=== PATIENT | male | born 1960 | race Two or more races ===

== ENCOUNTER 2017-06-03 07:38 | Day surgery (SDC) | payer OTHER ==
[2017-05-27 10:37] LABS: HEMATOCRIT 45.8 % (37.9-51.0); HEMOGLOBIN 15.5 g/dL (13.5-17.0); MEAN CORPUSCULAR HEMOGLOBIN 29.4 pg (27.0-33.4); MEAN CORPUSCULAR HGB CONC 33.8 g/dL (32.0-36.0); MEAN CORPUSCULAR VOLUME 87 fl (80-97); PLATELET COUNT 258 10^3/uL (150-450); RED BLOOD COUNT 5.26 10^6/uL (4.35-5.55); RED CELL DISTRIBUTION WIDTH 13.9 % (11.5-14.0); WHITE BLOOD COUNT 7.4 10^3/uL (4.0-10.5)
[2017-05-27 10:37] LABS: APPEARANCE,URINE SLIGHTLY-CLOUDY; BILIRUBIN,URINE NEGATIVE (NEGATIVE); COLOR,URINE YELLOW; GLUCOSE, URINE NEGATIVE (NEGATIVE); KETONES,URINE NEGATIVE (NEGATIVE); LEUKOCYTE ESTERASE,URINE NEGATIVE (NEGATIVE); NITRITE,URINE NEGATIVE (NEGATIVE); PROTEIN,URINE NEGATIVE (NEGATIVE); UROBILINOGEN,URINE NEGATIVE mg/dL (<2.0)
[2017-05-27 10:41] LABS: INTERNATIONAL RATION (INR) 0.91; PROTHROMBIN TIME 12.9 SEC (11.4-15.4)
[2017-05-27 10:42] LABS: PARTIAL THROMBOPLASTIN TIME 33.9 SEC (23.5-35.8)
--- NOTE | 2017-05-27 11:38 | RADIOLOGY REPORT (SQ) ---
EXAM DESCRIPTION: CHEST PA/LATERAL COMPLETED DATE/TIME: 05/27/2017 11:25 am REASON FOR STUDY: PRE OP COMPARISON: 01/27/2013 PA chest EXAM PARAMETERS: NUMBER OF VIEWS: two views TECHNIQUE: Digital Frontal and Lateral radiographic views of the chest acquired. RADIATION DOSE: NA LIMITATIONS: none FINDINGS: LUNGS AND PLEURA: No opacities, masses or pneumothorax. No pleural effusion. MEDIASTINUM AND HILAR STRUCTURES: No masses or contour abnormalities. HEART AND VASCULAR STRUCTURES: Heart normal size. No evidence for failure. BONES: No acute findings. HARDWARE: Thoracic spine neurostimulator leads are present, new compared to 2012 OTHER: No other significant finding. IMPRESSION: NO SIGNIFICANT RADIOGRAPHIC FINDING IN THE CHEST. TECHNICAL DOCUMENTATION: JOB ID: [id number] [employer]- All Rights Reserved Reading location - IP/workstation name: [email or web address]
--- NOTE | 2017-05-27 12:32 | EKG REPORT ---
SEVERITY:- BORDERLINE ECG - SINUS RHYTHM BORDERLINE T ABNORMALITIES, ANTERIOR LEADS, SIGHTLY IMPROVED V4-V6 FROM 01/27/13 EKG. : Confirmed by: Cornel Harmon MD 27-May-2017 12:32:06
[~2017-06-03 07:38] MED LIST: LACTATED RINGERS 1000 ML IV PRN
[2017-06-03] MEDS ORDERED: SODIUM BICARBONATE 8.4% INJ 50 MEQ/50 ML DISP.SYRIN ONE ×2 (07:51→10:00)
[2017-06-03] MEDS ORDERED: LIDOCAINE 1% INJ-PF (10 MG/ML) 30 ML SDV ONE (07:56)
[2017-06-03] MEDS ORDERED: BUPIVACAINE HCL 0.5%-EPI 1:200000 INJ/PF 30 ML VIAL ONE (07:56)
[2017-06-03] MEDS ORDERED: CLINDAMYCIN 600 MG/D5W RTU 600 MG/50 ML RTUPB IV PRN (08:20)
[2017-06-03] MEDS ORDERED: CLINDAMYCIN 600 MG/D5W RTU 600 MG/50 ML RTUPB IV ONE (08:25)
[2017-06-03] MEDS ORDERED: MIDAZOLAM 2 MG/2 ML INJ ONE (10:01)
[2017-06-03] MEDS ORDERED: LIDOCAINE 2% INJ-PF (20 MG/ML) 10 ML AMPUL ONE (10:01)
[2017-06-03] MEDS ORDERED: PROPOFOL INJ 200 MG/20 ML VIAL IV ONE (10:01)
[2017-06-03] MEDS ORDERED: DIPHENHYDRAMINE HCL 50 MG/ML VIAL IV PRN (10:20)
[2017-06-03] MEDS ORDERED: FENTANYL CITRATE INJ/PF 100 MCG/2 ML AMPUL IV PRN ×3 (10:20)
[2017-06-03] MEDS ORDERED: ONDANSETRON HCL INJ/PF 4 MG/2 ML SDV IV PRN (10:20)
[2017-06-03] MEDS ORDERED: OXYCODONE-ACETAMINOPHEN 5-325 MG TABLET PO PRN ×2 (10:20→11:43)
[2017-06-03] MEDS ORDERED: MEPERIDINE HCL/PF INJ 25 MG/1 ML DISP.SYRIN IV PRN (10:20)
[2017-06-03] MEDS ORDERED: PROMETHAZINE HCL INJ 25 MG/1 ML VIAL IV PRN ×2 (10:20)
[2017-06-03] MEDS ORDERED: CLINDAMYCIN PHOSPHATE INJ 300 MG/2 ML SDV ONE (11:15)
--- NOTE | 2017-06-03 11:40 | RADIOLOGY REPORT (SQ) ---
EXAM DESCRIPTION: SPINE SINGLE VIEW; NO CHG FLUORO COMPLETED DATE/TIME: 06/03/2017 11:14 am REASON FOR STUDY: BATTERY EXCHANGE ASST WITH FLUORO IN OR G89.4 CHRONIC PAIN SYNDROME COMPARISON: None. FLUOROSCOPY TIME: 02/02/2013 2 digital radiographic images saved to PACS. TECHNIQUE: Intra-operative images acquired during surgical procedure to evaluate progress. NUMBER OF IMAGES: 2 digital radiographic images LIMITATIONS: None. FINDINGS: Intra procedural imaging and fluoro during battery change on spinal cord stimulator perfor med by Dr. Weaver. Please see the operative report for further details IMPRESSION: Intra procedural imaging and fluoro COMMENT: Quality ID 145: Final reports for procedures using fluoroscopy that document radiation exp osure indices, or exposure time and number of fluorographic images (if radiation exposure indices are not available) Please consult full operative report of the attending physician for description of the procedure. TECHNICAL DOCUMENTATION: JOB ID: [id number] [employer]- All Rights Reserved Reading location - IP/workstation name: [email or web address]
--- NOTE | 2017-06-03 11:40 | RADIOLOGY REPORT (SQ) ---
EXAM DESCRIPTION: SPINE SINGLE VIEW; NO CHG FLUORO COMPLETED DATE/TIME: 06/03/2017 11:14 am REASON FOR STUDY: BATTERY EXCHANGE ASST WITH FLUORO IN OR G89.4 CHRONIC PAIN SYNDROME COMPARISON: None. FLUOROSCOPY TIME: 02/02/2013 2 digital radiographic images saved to PACS. TECHNIQUE: Intra-operative images acquired during surgical procedure to evaluate progress. NUMBER OF IMAGES: 2 digital radiographic images LIMITATIONS: None. FINDINGS: Intra procedural imaging and fluoro during battery change on spinal cord stimulator perfor med by Dr. Weaver. Please see the operative report for further details IMPRESSION: Intra procedural imaging and fluoro COMMENT: Quality ID 145: Final reports for procedures using fluoroscopy that document radiation exp osure indices, or exposure time and number of fluorographic images (if radiation exposure indices are not available) Please consult full operative report of the attending physician for description of the procedure. TECHNICAL DOCUMENTATION: JOB ID: [id number] [employer]- All Rights Reserved Reading location - IP/workstation name: [email or web address]
--- NOTE | 2017-06-03 12:59 | OPERATIVE REPORT E ---
Operative Report NAME: TARAN YO : 1960 AGE: 52Y DATE OF SURGERY: 06/03/2017 ROOM: PREOPERATIVE DIAGNOSIS: Nonfunctioning spinal cord stimulator post generator. POSTOPERATIVE DIAGNOSIS: Nonfunctioning spinal cord stimulator post generator. OPERATION: Remove and replace pulse generator with fluoroscopic assistance. SURGEON: TUCKER ZUNIGA M.D. FINDINGS: Nonfunctioning generator. COMPLICATIONS: None. SURGICAL ASSISTANTS: None. ANESTHESIA: MAC. ESTIMATED BLOOD LOSS: 20 mL. SPECIMENS REMOVED: Battery. PROCEDURE NOTE: After obtaining informed consent and advising the patient of the risks and benefits including the aggravation of pain, inability to complete the revision and have satisfactory pain relief, allergic reaction to medications, neurologic injury, paralysis, and , he was taken to the operating room, placed comfortably in the prone position. Comfort was assessed visually and verbally. Monitors were applied per Anesthesia, and MAC anesthesia was administered. He was prepped with chlorhexidine x2 over the entire back region with specific *------* midline and the pulse generator as noted on the left. Fluoroscopy was used to evaluate the electrodes. They appeared to be in satisfactory location without interruption or breakage. Pulse generator was identified with coil of electrodes behind the generator. The scar for the original battery implant was identified and local anesthesia was administered using 1% lidocaine with bicarbonate, followed by 0.25% bupivacaine with epinephrine, and once suitable anesthesia was obtained, sharp and blunt dissection were performed down to the pulse generator. This was delivered easily. The leads were disconnected and connected to a trial electrode wires and found that all impendences were satisfactory indicating that the leads were in functioning order. The new battery was connected and all hex nuts were secured. It was placed in the pocket after copious irrigation with Betadine containing irrigation solution. Impendence and connectivity was assessed and was satisfactory. Further irrigation was performed followed by closure with a vertical inverted mattress suture using 3-0 Polysorb followed by Dermabond tape and cement. When this was dry, Telfa and Tegaderm was placed. He was then taken to PACU for further postoperative care and monitoring. DICTATING PHYSICIAN: TUCKER ZUNIGA M.D. [id number] PHY#: [id number] ID: [id number] JOB#: [id number] ACCT: [id number] cc:TUCKER ZUNIGA M.D. > ALEXANDRA
[2017-06-03 13:12] VITALS: BP 130/78
== END 2017-06-03 13:00 | disposition home or self-care (01) ==
LOC: OROUT 07:38
PROVIDERS: ATTEND Pain Medicine Interventional Pain Medicine
PROC: 0JWT0MZ Revision of Stimulator Generator in Trunk Subcutaneous Tissue and Fascia, Open Approach (ICD-10-PCS; principal; 2017-06-03 09:30)
DX: T85.113A Breakdown (mechanical) of implanted electronic neurostimulator, generator, initial encounter (principal); Y83.1 Surgical operation with implant of artificial internal device as the cause of abnormal reaction of the patient, or of later complication, without mention of misadventure at the time of the procedure; G89.4 Chronic pain syndrome; M19.90 Unspecified osteoarthritis, unspecified site; I12.9 Hypertensive chronic kidney disease with stage 1 through stage 4 chronic kidney disease, or unspecified chronic kidney disease; N18.2 Chronic kidney disease, stage 2 (mild); M54.5 Low back pain; M54.16 Radiculopathy, lumbar region; M51.36 Other intervertebral disc degeneration, lumbar region; M96.1 Postlaminectomy syndrome, not elsewhere classified; E66.9 Obesity, unspecified; F45.42 Pain disorder with related psychological factors; Z79.899 Other long term (current) drug therapy; Z79.82 Long term (current) use of aspirin; Z68.43 Body mass index [BMI] 50.0-59.9, adult
CPT/HCPCS: 93005; 36415 ×2; 84132; 85027; 85610; 85730; 81001; 71046; 72020; 93010; 63688; C1820; J2250; J3490 ×5; J2704; 300

== ENCOUNTER 2018-02-17 09:21 | Day surgery (SDC) | payer OTHER ==
[2018-02-13 10:30] LABS: HEMOGLOBIN 15.3 g/dL (13.5-17.0); MEAN CORPUSCULAR HEMOGLOBIN 30.6 pg (27.0-33.4); MEAN CORPUSCULAR HGB CONC 34.7 g/dL (32.0-36.0); MEAN CORPUSCULAR VOLUME 88 fl (80-97); PLATELET COUNT 263 10^3/uL (150-450); RED BLOOD COUNT 4.98 10^6/uL (4.35-5.55); RED CELL DISTRIBUTION WIDTH 13.8 % (11.5-14.0); WHITE BLOOD COUNT 8.6 10^3/uL (4.0-10.5)
[2018-02-13 10:32] LABS: APPEARANCE,URINE SLIGHTLY-CLOUDY; BILIRUBIN,URINE NEGATIVE (NEGATIVE); GLUCOSE, URINE NEGATIVE (NEGATIVE); KETONES,URINE NEGATIVE (NEGATIVE); LEUKOCYTE ESTERASE,URINE SMALL (NEGATIVE); NITRITE,URINE NEGATIVE (NEGATIVE); PROTEIN,URINE NEGATIVE (NEGATIVE); URINE SPECIFIC GRAVITY 1.024; UROBILINOGEN,URINE NEGATIVE mg/dL (<2.0)
[2018-02-13 10:33] LABS: COLOR,URINE YELLOW
[2018-02-13 10:36] LABS: INTERNATIONAL RATION (INR) 0.92; PROTHROMBIN TIME 12.8 SEC (11.4-15.4)
[2018-02-13 10:37] LABS: PARTIAL THROMBOPLASTIN TIME 37.2 SEC (23.5-35.8)
--- NOTE | 2018-02-13 10:53 | RADIOLOGY REPORT (SQ) ---
EXAM DESCRIPTION: CHEST PA/LATERAL COMPLETED DATE/TIME: 02/13/2018 10:34 am REASON FOR STUDY: PRE-OP COMPARISON: 01/27/2013 EXAM PARAMETERS: NUMBER OF VIEWS: two views TECHNIQUE: Digital Frontal and Lateral radiographic views of the chest acquired. RADIATION DOSE: NA LIMITATIONS: none FINDINGS: LUNGS AND PLEURA: No opacities, masses or pneumothorax. No pleural effusion. MEDIASTINUM AND HILAR STRUCTURES: No masses or contour abnormalities. HEART AND VASCULAR STRUCTURES: Heart normal size. No evidence for failure. BONES: No acute findings. HARDWARE: None in the chest. OTHER: Neurostimulator overlies the mid dorsal spine. IMPRESSION: NO SIGNIFICANT RADIOGRAPHIC FINDING IN THE CHEST. TECHNICAL DOCUMENTATION: JOB ID: [id number] [employer]- All Rights Reserved Reading location - IP/workstation name: [email or web address]
--- NOTE | 2018-02-13 13:17 | EKG REPORT ---
SEVERITY:- ABNORMAL ECG - SINUS RHYTHM BORDERLINE T ABNORMALITIES, INFERIOR AND ANTERIOR LEADS : Confirmed by: Cornel Harmon MD 13-Feb-2018 13:16:44
[~2018-02-17 09:21] MED LIST changes: +CEFAZOLIN 1 GM/D5W RTU 1 GM/50 ML RTUPB IV PRN; +CLINDAMYCIN 600 MG/D5W RTU 600 MG/50 ML RTUPB IV ONE; +CLINDAMYCIN 600 MG/D5W RTU 600 MG/50 ML RTUPB IV PRN; +LIDOCAINE 0.5% INJ-PF (5 MG/ML) 50 ML SDV SUBCUT PRN
[2018-02-17] MEDS ORDERED: BUPIVACAINE HCL 0.25% /EPINEPHRINE INJ/PF 30 ML SDV ONE (10:03)
[2018-02-17] MEDS ORDERED: SODIUM BICARBONATE 8.4% INJ 50 MEQ/50 ML DISP.SYRIN ONE (10:03)
[2018-02-17] MEDS ORDERED: LIDOCAINE 1% INJ-PF (10 MG/ML) 30 ML SDV ONE (10:03)
[2018-02-17] MEDS ORDERED: MIDAZOLAM 2 MG/2 ML INJ ONE (12:04)
[2018-02-17] MEDS ORDERED: FENTANYL CITRATE INJ/PF 100 MCG/2 ML AMPUL ONE (12:04)
[2018-02-17] MEDS ORDERED: ONDANSETRON HCL INJ/PF 4 MG/2 ML SDV ONE (12:05)
[2018-02-17] MEDS ORDERED: PROPOFOL INJ 200 MG/20 ML VIAL IV ONE (12:05)
[2018-02-17] MEDS ORDERED: DIPHENHYDRAMINE HCL 50 MG/ML VIAL IV PRN (12:45)
[2018-02-17] MEDS ORDERED: PROMETHAZINE HCL INJ 25 MG/1 ML VIAL IV PRN (12:45)
[2018-02-17] MEDS ORDERED: FENTANYL CITRATE INJ/PF 100 MCG/2 ML AMPUL IV PRN ×3 (12:45)
[2018-02-17] MEDS ORDERED: MEPERIDINE HCL/PF INJ 25 MG/1 ML DISP.SYRIN IV PRN (12:45)
[2018-02-17] MEDS ORDERED: MORPHINE SULFATE 10 MG/ML INJ IV PRN (12:45)
[2018-02-17] MEDS: FENTANYL CITRATE INJ/PF 100 MCG/2 ML AMPUL ONE ×2 (13:34→13:44)
[2018-02-17] MEDS ORDERED: OXYCODONE-ACETAMINOPHEN 5-325 MG TABLET PO PRN (13:35)
--- NOTE | 2018-02-17 13:40 | RADIOLOGY REPORT (SQ) ---
EXAM DESCRIPTION: NO CHG FLUORO; L SPINE 2 VIEWS COMPLETED DATE/TIME: 02/17/2018 1:28 pm REASON FOR STUDY: SPINAL STIMULATOR REVISION ASST WITH FLUORO IN OR COMPARISON: None. FLUOROSCOPY TIME: 0.3 minutes 4 Images saved to PACS LIMITATIONS: None. PROCEDURE: Spinal stimulator revision FINDINGS: 4 images document the procedure. IMPRESSION: Spinal stimulator revision. Refer to operative note for further information. COMMENT: PQRS 6045F: Fluoroscopy time of the procedure is documented in the report. TECHNICAL DOCUMENTATION: JOB ID: [id number] [employer]- All Rights Reserved Reading location - IP/workstation name: [email or web address]
--- NOTE | 2018-02-17 13:40 | RADIOLOGY REPORT (SQ) ---
EXAM DESCRIPTION: NO CHG FLUORO; L SPINE 2 VIEWS COMPLETED DATE/TIME: 02/17/2018 1:28 pm REASON FOR STUDY: SPINAL STIMULATOR REVISION ASST WITH FLUORO IN OR COMPARISON: None. FLUOROSCOPY TIME: 0.3 minutes 4 Images saved to PACS LIMITATIONS: None. PROCEDURE: Spinal stimulator revision FINDINGS: 4 images document the procedure. IMPRESSION: Spinal stimulator revision. Refer to operative note for further information. COMMENT: PQRS 6045F: Fluoroscopy time of the procedure is documented in the report. TECHNICAL DOCUMENTATION: JOB ID: [id number] [employer]- All Rights Reserved Reading location - IP/workstation name: [email or web address]
[2018-02-17] MEDS ORDERED: OXYCODONE-ACETAMINOPHEN 5-325 MG TABLET ONE (14:21)
--- NOTE | 2018-02-17 14:22 | OPERATIVE REPORT E ---
Operative Report NAME: TARAN YO : 1960 AGE: 57Y DATE OF SURGERY: 02/17/2018 ROOM: PREOPERATIVE DIAGNOSIS: NONFUNCTIONING SPINAL CORD STIMULATOR SECONDARY TO PULSE GENERATOR POCKET PAIN. POSTOPERATIVE DIAGNOSIS: NONFUNCTIONING SPINAL CORD STIMULATOR SECONDARY TO PULSE GENERATOR POCKET PAIN. OPERATION: Revision of pulse generator pocket with fluoroscopic assistance. SURGEON: TUCKER ZUNIGA M.D. CLINICAL SOCIAL WORK THERAPIST: JONG BRYAN MD ANESTHESIA: MAC SPECIMENS REMOVED: None. ESTIMATED BLOOD LOSS: Minimal, 5 mL or less. COMPLICATIONS: None. INDICATION: Pump pocket pain. ROCEDURE: After obtaining informed consent advising the patient of the risks and benefits including serious neurological injury, bleeding, infection, failure to resolve pocket pain, and nonfunctioning stimulator with revision of wires, he was taken to the operating room and placed comfortably in the prone position. MAC anesthesia was administered. He was prepped and draped in the usual fashion with Chlorhexidine and a suitable 3 minute waiting period for proper drying. After draping, he was evaluated under fluoroscopy and the pulse generator was seen with the wires coiled neatly behind the generator and no evidence of stem wires on the top or to the side of the pulse generator. The skin was anesthetized with 1% lidocaine with bicarb and the pocket was anesthetized as well with 0.25% bupivacaine with epinephrine. Sharp and blunt dissection were performed down to the pulse generator. Bovie was not used at this time. The generator was removed easily from the pocket and disconnected from the leads. The leads were uncoiled from the scar tissue. The capsule at the superior edge of the pocket was then infiltrated with 0.25% bupivacaine and Bovie dissection and blunt and sharp dissection were proceeded to create a space for the pulse generator, superior to the existing pocket. The pulse generator was connected back to the leads. They had been marked so the appropriate placement remained intact. The hex nuts were tightened after testing for impendence which was satisfactory. The generator was then placed in the pocket with the wires behind the generator and the label facing the skin. The pocket was then closed, securing the pulse generator in its more superior location. It should be noted that the wounds were copiously irrigated with Betadine-containing irrigation solution. The capsule was then approximated to its preexisting edge with 2-0 Vicryl. A second layer was then utilized. The skin was then stapled without difficulty after additional irrigation. The region appeared good. Sterile dressings were placed and the patient was taken to the PACU for further postoperative care and monitoring. DICTATING PHYSICIAN: TUCKER ZUNIGA M.D. [id number] PHY#: [id number] ID: [id number] JOB#: [id number] ACCT: [id number] cc:TUCKER ZUNIGA M.D. >
[2018-02-17 15:32] VITALS: BP 128/79
== END 2018-02-17 15:15 | disposition home or self-care (01) ==
LOC: OROUT 09:21
PROVIDERS: ATTEND Pain Medicine Interventional Pain Medicine
DX: G89.4 Chronic pain syndrome (principal); Z79.899 Other long term (current) drug therapy; Z79.82 Long term (current) use of aspirin; Z79.1 Long term (current) use of non-steroidal anti-inflammatories (NSAID); I10 Essential (primary) hypertension; K21.9 Gastro-esophageal reflux disease without esophagitis; M19.90 Unspecified osteoarthritis, unspecified site; M54.5 Low back pain; M54.16 Radiculopathy, lumbar region; M96.1 Postlaminectomy syndrome, not elsewhere classified; F45.42 Pain disorder with related psychological factors; M60.9 Myositis, unspecified; Z79.891 Long term (current) use of opiate analgesic; G47.33 Obstructive sleep apnea (adult) (pediatric)
CPT/HCPCS: 93005; 36415 ×2; 84132; 85027; 85610; 85730; 81001; 71046; 72100; 93010; 63688; J2250; J3490 ×3; J3010; J2405; J2704; 1936

== ENCOUNTER → 2019-02-26 | Outpatient (CLI) | payer OTHER ==
--- NOTE | 2019-02-26 12:43 | RADIOLOGY REPORT (SQ) ---
EXAM DESCRIPTION: LUMBAR SPINE COMPLETE COMPLETED DATE/TIME: 02/26/2019 12:06 pm REASON FOR STUDY: RADICULOPATHY, LUMBAR REGION M54.16 RADICULOPATHY, LUMBAR REGION COMPARISON: None. NUMBER OF VIEWS: Five views including obliques. TECHNIQUE: AP, lateral, oblique, and sacral radiographic images acquired of the lumbar spine. LIMITATIONS: None. FINDINGS: MINERALIZATION: Normal. SEGMENTATION: Normal. No transitional anatomy. ALIGNMENT: Normal. VERTEBRAE: Maintained height. No fracture or worrisome bone lesion. DISCS: Mild multilevel disc space narrowing most marked at L3-L4. Small anterior osteophytes through out the lumbar spine. POSTERIOR ELEMENTS: Pedicles and facets are intact. No pars defect or posterior arch defects. HARDWARE: None in the spine. There has been posterior decompression from L3 through L5. PARASPINAL SOFT TISSUES: Normal. PELVIS: Intact as visualized. No fractures or worrisome bone lesions. SI joints intact. OTHER: No other significant finding. IMPRESSION: Postsurgical and mild degenerative changes. No acute findings. TECHNICAL DOCUMENTATION: JOB ID: [id number]- All Rights Reserved Reading location - IP/workstation name: [email or web address]
== END ==
LOC: OD 11:48
PROVIDERS: ATTEND Student in an Organized Health Care Education/Training Program
DX: M51.16 Intervertebral disc disorders with radiculopathy, lumbar region (principal)
CPT/HCPCS: 72110

== ENCOUNTER → 2019-12-24 | Outpatient (CLI) | payer OTHER ==
--- NOTE | 2019-12-24 12:10 | RADIOLOGY REPORT (SQ) ---
EXAM DESCRIPTION: MRI LUMBAR SPINE WITHOUT IMAGES COMPLETED DATE/TIME: 12/24/2019 10:56 am REASON FOR STUDY: M54.16 RADICULOPATHY, LUMBAR REGION M54.16 RADICULOPATHY, LUMBAR REGION COMPARISON: Lumbar spine radiographs 02/26/2019 TECHNIQUE: Sagittal and Axial imaging includes T1, T2, STIR and gradient echo sequences. Coronal T2/ HASTE imaging. LIMITATIONS: Metallic artifact disturbance in the dorsal soft tissues at the L2-3 level FINDINGS: VISUALIZED UPPER ABDOMEN: Limited evaluation. No acute or suspicious findings suggested. SEGMENTATION: No transitional anatomy. The lowest well-developed disc space is labeled L5-S1. ALIGNMENT: Anatomic. VERTEBRAE: Intact. BONE MARROW: Normal. No marrow replacement or reactive changes. DISC SIGNAL: Decreased T2 weighted intervertebral disc signal with disc space loss of height at L2-3, L3-4, L4-5 POSTERIOR ELEMENTS: Post old bilateral laminectomies at L3-L4 and L5 HARDWARE: None in the spine. CORD AND CONUS: Normal in size and signal intensity. Conus at the L1-2 level. SOFT TISSUES: No aortic aneurysm seen. No bulky retroperitoneal adenopathy or mass. No paraspinal mas s or fluid. T12-L1: Bilateral facet arthropathy. No central or foraminal stenosis L1-L2: Mild diffuse posterior disc bulging, moderate bilateral facet hypertrophy. Mild central canal stenosis with partial effacement of the CSF around the lumbar nerve roots on sagittal T2 image 9 and axial T2 image 5. Mild bilateral foraminal narrowing without exit L1 nerve root impingement L2-L3: Moderate-sized central disc protrusion. This finding along with broad diffuse posterior disc bulge and bulky bilateral facet and ligament hypertrophy causes high-grade central canal narrowing wi th flattening of the thecal sac into a T-shape, best shown on axial T2 image 12 and sagittal image 9. Elsewhere at L2-3, there is inferior bilateral foraminal disc bulging causing [id number] forami nal narrowing without exit L2 nerve root impingement L3-L4: Old bilateral laminectomy. Residual facet arthropathy and mild diffuse posterior disc bulging without central stenosis. Moderate right foraminal narrowing with partial effacement of fat around the exiting right L3 nerve root. Mild left L3-4 foraminal narrowing L4-L5: Old bilateral laminectomy. Bulky bilateral residual facet arthropathy and broad diffuse poste rior disc bulging without central stenosis. Moderate right foraminal narrowing with partial effaceme nt of fat around the exiting right L4 nerve root. Mild left L4-5 foraminal narrowing. L5-S1: Old bilateral laminectomy. Residual facet arthropathy. Broad diffuse posterior disc bulging. No central stenosis. [id number] bilateral foraminal narrowing without exit nerve root imping ement SACRUM: Visualized upper sacrum intact. OTHER: No other significant findings. IMPRESSION: Significant central canal stenosis at L2-3 TECHNICAL DOCUMENTATION: JOB ID: [id number] [employer]- All Rights Reserved Reading location - IP/workstation name: [email or web address]
== END ==
LOC: RAD 10:08
PROVIDERS: ATTEND Nurse Practitioner Family
DX: M51.16 Intervertebral disc disorders with radiculopathy, lumbar region (principal)
CPT/HCPCS: 72148